=== PATIENT | male | born 1990 | race Two or more races ===

== ENCOUNTER 2018-06-13 21:59 | Emergency (ER) | payer BC, OTHER ==
[~2018-06-13] VITALS: Ht 180.3 cm; Wt 80.0 kg
--- NOTE | 2018-06-13 22:12 | NUR ---
PT BIB [facility] C/O CP AFTER SMOKING WEED TONIGHT AND BILAT HAND NUMBNESS. STATES CP L AND R OF CHEST W/ ASSOCIATED SOB. DENIES ANY MED HX. DENIES ANY FURTHER DRUG/STIMULANT USE. EKG ACCOMPLISHED JUST AFTER ADMIT TO ED. PT BREATHING MILDLY FAST AND MILDLY TACHYCARDIC. MD AWARE. ALL MONITORING APPLIED. VSS. CALL LIGHT WITHIN REACH. MD AT BEDSIDE FOR ASSESSMENT.
[2018-06-13] MEDS ORDERED: ACETAMINOPHEN 325 MG TABLET ONE (22:24)
[2018-06-13] MEDS ORDERED: MAALOX/HYOSCYAMINE/LIDOCAINE 45 ML BTL ONE (22:24)
[2018-06-13 22:28] LABS: BASOPHILS % (AUTO) 0 % (0-1); EOSINOPHILS # (AUTO) 0.02 x10^3/uL (0-0.4); EOSINOPHILS % (AUTO) 0 % (1-7); LYMPHOCYTES # (AUTO) 1.76 x10^3/uL (1-3.4); LYMPHOCYTES % (AUTO) 24 % (22-44); MD NO; MEAN CORPUSCULAR HEMOGLOBIN 30.7 pg (27.5-34.5); MEAN CORPUSCULAR HGB CONC 33.3 g/dL (33.2-36.2); MEAN CORPUSCULAR VOLUME 92.2 fL (81-97); MEAN PLATELET VOLUME 8.9 fL (7.4-10.4); MONOCYTES # (AUTO) 0.56 x10^3/uL (0.2-0.8); MONOCYTES % (AUTO) 8 % (2-9); NEUTROPHILS # (AUTO) 5.08 x10^3/uL (1.8-6.8); NEUTROPHILS % (AUTO) 68 % (42-75); PLATELET COUNT 268 x10^3/uL (130-400); RED BLOOD COUNT 4.96 x10^6/uL (4.38-5.82); RED CELL DISTRIBUTION WIDTH 12.8 % (9.4-14.8)
[2018-06-13] MEDS ORDERED: MAALOX/HYOSCYAMINE/LIDOCAINE 45 ML BTL PO ONE (22:30)
[2018-06-13] MEDS ORDERED: ACETAMINOPHEN 325 MG TABLET PO ONE (22:30)
[2018-06-13 22:38] LABS: ALANINE AMINOTRANSFERASE 21 U/L (12-78); ALBUMIN 4.5 g/dL (3.4-5.0); ANION GAP 10 mmol/L (5-15); CALCIUM 9.2 mg/dL (8.5-10.1); CHLORIDE 108 mmol/L (98-107); CREATININE 1.06 mg/dL (0.7-1.3)
[2018-06-13 22:42] LABS: ALKALINE PHOSPHATASE 86 U/L (45-117); BILIRUBIN,TOTAL 0.9 mg/dL (0.2-1.0); TOTAL PROTEIN 7.5 g/dL (6.4-8.2); TROPONIN I < 0.015 ng/mL (0.000-0.045)
--- NOTE | 2018-06-13 23:26 | NUR ---
ALL RESULTS BACK. PT UP FOR RECHECK.
[2018-06-14 00:16] VITALS: BP 122/69
--- NOTE | 2018-06-14 00:16 | NUR ---
PT STATES DECREASE IN PAIN W/ MEDICATIONS AND HANDS NO LONGER NUMB. MD AWARE. AWAITING MD RECHECK.
== END 2018-06-14 00:44 | disposition home or self-care (01) ==
LOC: ED 23:12
DX: R07.89 Other chest pain (principal); F17.200 Nicotine dependence, unspecified, uncomplicated
CPT/HCPCS: 36415; 71045; 80053; 84484; 85025; 85379; 93005; 99284